=== PATIENT | male | born 1955 | race Caucasian/White ===

== ENCOUNTER → 2020-05-18 | Outpatient (CLI) | payer OTHER ==
[~2020-05-18] MED LIST: ASPIR 8181 MG PO; ASPIRIN325 PO; BYSTOLIC 5 MG5 M1 PO; DICLOFENAC SOD100 MG PO; FISH OIL 1,0001 EAC5 PO; FLECAINIDE ACET50 M1 PO; LEVOTHYROXINE 0.1 MG PO; LIPITOR40 MG PO; LORAZEPAM 2MG TA2 M1 PO; LORTAB PO; RYTHMOL SR325 MG PO; SAVAYSA60 MG PO; VALIUM5 MG PO; VYVANSE40 MG PO; VYVANSE50 MG PO; WELLBUTRIN SR150 MG PO
== END ==
LOC: SJCVC 16:13
PROVIDERS: ATTEND Internal Medicine Cardiovascular Disease
DX: R94.31 Abnormal electrocardiogram [ECG] [EKG] (principal); I45.10 Unspecified right bundle-branch block; I48.91 Unspecified atrial fibrillation; I10 Essential (primary) hypertension; E78.00 Pure hypercholesterolemia, unspecified; I65.23 Occlusion and stenosis of bilateral carotid arteries; Z79.82 Long term (current) use of aspirin; Z79.899 Other long term (current) drug therapy; Z87.891 Personal history of nicotine dependence; Z82.49 Family history of ischemic heart disease and other diseases of the circulatory system

== ENCOUNTER → 2020-05-18 | Outpatient (CLI) | payer OTHER | LOC: CAT 16:29 | PROVIDERS: ATTEND Internal Medicine Cardiovascular Disease | DX: Z13.6 Encounter for screening for cardiovascular disorders (principal); I25.10 Atherosclerotic heart disease of native coronary artery without angina pectoris; E78.00 Pure hypercholesterolemia, unspecified ==

== ENCOUNTER → 2020-07-06 | Outpatient (CLI) | payer OTHER | LOC: SJCVCIMAG 08:16 | PROVIDERS: ATTEND Internal Medicine Cardiovascular Disease | DX: I34.0 Nonrheumatic mitral (valve) insufficiency (principal); R06.00 Dyspnea, unspecified; R53.83 Other fatigue; I48.91 Unspecified atrial fibrillation; I10 Essential (primary) hypertension; E78.5 Hyperlipidemia, unspecified; Z82.49 Family history of ischemic heart disease and other diseases of the circulatory system ==

== ENCOUNTER 2020-10-30 11:03 | Emergency (ER) | payer OTHER ==
[~2020-10-30] VITALS: Ht 193 cm; Wt 97.5 kg
[2020-10-30] MEDS ORDERED: ADDERALL 20 MG20 MG PO (11:31)
[2020-10-30] MEDS ORDERED: EZETIMIBE10 MG PO (11:32)
[2020-10-30] MEDS ORDERED: BUPROPION XL300 MG PO (11:32)
[2020-10-30] MEDS ORDERED: OLMESARTAN MEDO40 MG PO (11:32)
[2020-10-30 11:46] LABS: ABSOLUTE NEUTROPHILS 3.2 thou/uL (1.4-8.2); BASOPHILS 0.4 % (0.0-2.0); EOSINOPHILS 2.2 % (0.0-3.0); HEMATOCRIT 42.3 % (42.0-52.0); HEMOGLOBIN 14.2 gm/dL (14.0-18.0); LYMPHOCYTES 16.1 % (24.0-44.0); MCH 32.2 pg (26.0-34.0); MCHC 33.5 g/dL (28.0-37.0); MONOCYTES 9.3 % (1.0-8.0); PLATELET COUNT 169 thou/uL (150-400); RDW 13.1 % (10.5-14.5); WBC 4.4 thou/uL (4.0-11.0)
[2020-10-30 11:58] LABS: ANION GAP 9 mmol/L (7-16); BUN 38 mg/dL (7-18); CALCIUM 8.9 mg/dL (8.5-10.1); CHLORIDE 105 mmol/L (98-107); CO2 27 mmol/L (21-32); CREATININE 2.1 mg/dL (0.7-1.3); GLUCOSE 95 mg/dL (74-106); POTASSIUM 4.8 mmol/L (3.5-5.1); SODIUM 141 mmol/L (136-145)
[2020-10-30 12:08] LABS: ALBUMIN 3.8 g/dL (3.4-5.0); MAGNESIUM 2.4 mg/dL (1.8-2.4); SGOT 38 U/L (15-37); SGPT 62 U/L (30-65); TOTAL BILIRUBIN 0.6 mg/dL (0.2-1.0); TOTAL PROTEIN 7.3 g/dL (6.4-8.2); TROPONIN-I <0.06 ng/mL (<0.06)
[2020-10-30 13:56] VITALS: BP 128/68
--- NOTE | 2020-10-30 18:50 | EKG ---
[address] [address] ELECTROCARDIOGRAM REPORT Name: FILIBERTO CRESPO Room #: [facility]#: [id number] Admission: 10/30/20 Attend Phys: Discharge: 10/30/20 Date of : 53 Report #: [id number] [facility] ED Test Date: 2020-10-30 Test Time: 11:07:20 Pat Name: FILIBERTO CRESPO Department: Room: Gender: M [employer]: unknown : 1955 Requested By: Kayy Moore Order Number: [id number] MD: Derek Hancock Measurements Intervals [place] Rate: 71 P: 66 WI: 230 QRS: 52 QRSD: 121 T: -8 QT: 417 QTc: 454 Interpretive Statements Sinus rhythm Prolonged WI interval Nonspecific intraventricular conduction delay Borderline T abnormalities, inferior leads Borderline ST elevation, anterolateral leads Compared to ECG 02/20/2010 06:43:27 First degree AV block now present Intraventricular conduction delay now present T-wave abnormality now present ST (T wave) deviation now present Sinus bradycardia no longer present Electronically Signed On 10-30-2020 18:50:33 CDT by Derek Hancock [email or web address] <ELECTRONICALLY SIGNED> By: Derek Hancock MD, [facility] 10/30/20 1850 1107 [id number] Derek Hancock MD, [facility] /EPI
== END 2020-10-30 13:56 | disposition home or self-care (01) ==
LOC: ER 11:03
PROVIDERS: Emergency Medicine
DX: R42 Dizziness and giddiness (principal); E86.0 Dehydration; I48.91 Unspecified atrial fibrillation; Z98.890 Other specified postprocedural states; Z72.89 Other problems related to lifestyle; Z20.822 Contact with and (suspected) exposure to COVID-19; Z79.899 Other long term (current) drug therapy

== ENCOUNTER → 2020-11-02 | Outpatient (CLI) | payer OTHER ==
[~2020-11-02] MED LIST changes: +ADDERALL 20 MG20 MG PO; +BUPROPION XL300 MG PO; +EZETIMIBE10 MG PO; +OLMESARTAN MEDO40 MG PO
== END ==
LOC: SJCVCIMAG 09:23
PROVIDERS: ATTEND Internal Medicine Cardiovascular Disease
DX: R94.31 Abnormal electrocardiogram [ECG] [EKG] (principal); I10 Essential (primary) hypertension; N17.9 Acute kidney failure, unspecified; E78.00 Pure hypercholesterolemia, unspecified; I48.91 Unspecified atrial fibrillation; I65.23 Occlusion and stenosis of bilateral carotid arteries; Z82.49 Family history of ischemic heart disease and other diseases of the circulatory system; Z87.891 Personal history of nicotine dependence; Z72.89 Other problems related to lifestyle; Z79.82 Long term (current) use of aspirin; Z79.899 Other long term (current) drug therapy

== ENCOUNTER → 2021-03-06 | Outpatient (CLI) | payer OTHER | LOC: SJCVC 13:55 | PROVIDERS: ATTEND Internal Medicine Cardiovascular Disease | DX: R94.31 Abnormal electrocardiogram [ECG] [EKG] (principal); I48.91 Unspecified atrial fibrillation; I10 Essential (primary) hypertension; E78.00 Pure hypercholesterolemia, unspecified; R93.1 Abnormal findings on diagnostic imaging of heart and coronary circulation; Z87.891 Personal history of nicotine dependence; Z72.89 Other problems related to lifestyle; Z79.82 Long term (current) use of aspirin; Z79.899 Other long term (current) drug therapy ==